=== PATIENT | male | born 1975 | race Caucasian/White ===

== ENCOUNTER 2017-03-30 01:39 | Emergency (ER) | payer BC, OTHER ==
[~2017-03-30] VITALS: Ht 175.3 cm; Wt 118.0 kg
[~2017-03-30 01:39] MED LIST: AMLO5TAB96 PO; ATEN1TAB73 PO; LEVO150T46 PO; LISI-591 PO; LORT5TAB PO; META800 PO; SERT100 PO
[2017-03-30 01:40] VITALS: BP 154/112; PULSE 77; RESP 16; TEMP 98.6; O2SAT 97
[2017-03-30 02:34] LABS: BASOPHIL % 0.8 % (0.0-2.0); EOSINOPHIL # 0.1 TH/MM3 (0-0.4); EOSINOPHIL % 1.2 % (0.0-4.0); HEMATOCRIT 44.1 % (39.0-51.0); HEMO FLAGS DIFF FINAL; LYMPH % 26.8 % (9.0-44.0); LYMPHOCYTE # 1.6 TH/MM3 (1.0-4.8); MEAN CELL VOLUME 88.6 FL (80.0-100.0); MEAN CORPUSCULAR HEMOGLOBIN 31.1 PG (27.0-34.0); MEAN CORPUSCULAR HGB CONC 35.1 % (32.0-36.0); MONO % 21.2 % (0.0-8.0); PLATELET COUNT 187 TH/MM3 (150-450); RED BLOOD COUNT 4.98 MIL/MM3 (4.50-5.90); RED CELL DISTRIBUTION WIDTH 13.8 % (11.6-17.2); WHITE BLOOD COUNT 5.9 TH/MM3 (4.0-11.0)
--- NOTE | 2017-03-30 03:02 | RADRPT ---
EXAM DATE/TIME: 03/30/2017 02:18 [place] COMPARISON: No previous studies available for comparison. INDICATIONS : Fever. MEDICAL HISTORY : Hypertension. Carcinoma, testicular. SURGICAL HISTORY : Left kidney removed. Infusaport. ENCOUNTER: Initial ACUITY: 3 days PAIN SCORE: 8/10 LOCATION: Bilateral chest FINDINGS: A single view of the chest demonstrates the lungs to be symmetrically aerated without evidence of mas s, infiltrate or effusion. The cardiomediastinal contours are unremarkable. Osseous structures are intact. [id number] catheter tip projects over the distal superior vena cava. CONCLUSION: The lungs are clear. Long Castañeda MD on March 30, 2017 at 3:00 Board Certified Radiologist. This report was verified electronically.
[2017-03-30 03:05] LABS: ALKALINE PHOSPHATASE 93 U/L (45-117); TOTAL BILIRUBIN ADULT 0.3 MG/DL (0.2-1.0)
[2017-03-30 03:09] LABS: ALT (GPT) 27 U/L (12-78); ANION GAP 8 MEQ/L (5-15); AST (GOT) 26 U/L (15-37); BICARBONATE 25.9 MEQ/L (21.0-32.0); BLOOD UREA NITROGEN 17 MG/DL (7-18); CHLORIDE 104 MEQ/L (98-107); GLOMERULAR FILTRATION RATE 44 ML/MIN (>89); POTASSIUM 4.3 MEQ/L (3.5-5.1); SODIUM (NA) 138 MEQ/L (136-145)
[2017-03-30] MEDS ORDERED: guaiFENesin/CODEINE SYRUP 200 MG/20 MG/10 ML CUP PO ONE (04:15)
[2017-03-30] MEDS ORDERED: DEXAMETHASONE SOD PHOS 4 MG/ML VIAL IV PUSH ONE (04:15)
--- NOTE | 2017-03-30 04:17 | PD ---
HPI Chief Complaint: Cold / Flu Symptoms Time Seen by Provider: 02:24 Travel History International Travel<30 days: No Contact w/Intl Traveler<30days: No Traveled to known affect area: No History of Present Illness HPI Patient has a sore throat and congested feeling for over 2 weeks. He seen his doctor who put him on Levaquin 10 day course. Then he took a Z-Ralf. 2 days later started a second course of Z-Ralf. He has 2 more days left of the Z-Ralf. 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 He has no complaints of dysuria or any other symptoms. He only feels congested throat inflamed and he is Marti completed 2 courses of antibiotics in the middle of the third. Chest x-rays done here labs are sent flu sent he has congested tightness in his throat swelling lymph nodes localized to the neck and the posterior pharynx no radiation no cough no fever. He took hydrocodone / Tylenol 2 pills to feel better. with moderate relief. He has seen his own private doctor for the same illness PFSH Past Medical History Anxiety: Yes Depression: Yes Cancer: Yes Diminished Hearing: No Hypertension: Yes Respiratory: Yes (SLEEP APNEA) Thyroid Disease: Yes Tetanus Vaccination: < 5 Years Influenza Vaccination: No Past Surgical History Abdominal Surgery: Yes (L nephrectomy ) Genitourinary Surgery: Yes (L orchidectomy ) Other Surgery: Yes (Retroperitoneal lymph node disection) Family History Family Myocardial Infarction: No Social History Alcohol Use: Yes (OCCASIONAL) Tobacco Use: No Substance Use: No Allergies-Medications (Allergen,Severity, Reaction): Coded Allergies: No Known Allergies (Verified Adverse Reaction, Unknown, 03/30/17) Reported Meds & Prescriptions Reported Meds & Active Scripts Active Magic Mouthwash Adult Liq (Multi-Ingredient Mouthwash/Gargle) 120 Ml Susp 10 Ml SWISH-SWAL ACHS Each 5mL contains: Nystatin 200,000units, Diphenhydramine 4.25mg, Viscous Lidocaine 10mg, Urbano syrup 0.8 mL Guaifenesin AC Liq (Guaifenesin-Codeine Liq) 100-10 Mg/5 Ml Syrp 10 Ml PO Q6H PRN Skelaxin (Metaxalone) 800 Mg Tab 800 Mg PO TIDPRN FOR MUSCLE RELAXATION Lortab 5/500 (Acetaminophen/Hydrocodone Bitart) 5 Mg/500 Mg Tab 1 Tab PO Q6HPRN FOR PAIN Reported Norvasc (Amlodipine Besylate) 5 Mg Tab 5 Mg PO BID Levoxyl (Levothyroxine Sodium) 150 Mcg Tab 175 Mcg PO DAILY Zoloft (Sertraline HCl) 100 Mg Tab 100 Mg PO DAILY Zestril 20 mg (Lisinopril) 20 Mg Tab 20 Mg PO BID Tenormin (Atenolol) 25 Mg Tab 25 Mg PO HS Review of Systems Except as stated in HPI: all other systems reviewed are Neg HENT: Positive: Sore Throat, Rhinorrhea, Congestion, Earache Physical Exam Narrative GENERAL: appears uncomfortable congested SKIN: Warm and dry. HEAD: Atraumatic. Normocephalic. EYES: Pupils equal and round. No scleral icterus. No injection or drainage. ENT: No nasal bleeding or discharge. Mucous membranes pink and moist.swollen tonsils bilaterally and submandibular lymphadenitis bilat NECK: Trachea midline. No JVD. lymphadenopathy anterior neck bilat CARDIOVASCULAR: Regular rate and rhythm. RESPIRATORY: No accessory muscle use. Clear to auscultation. Breath sounds equal bilaterally. GASTROINTESTINAL: Abdomen soft, non-tender, nondistended. Hepatic and splenic margins not palpable. MUSCULOSKELETAL: Extremities without clubbing, cyanosis, or edema. No obvious deformities. NEUROLOGICAL: Awake and alert. No obvious cranial nerve deficits. Motor grossly within normal limits. Five out of 5 muscle strength in the arms and legs. Normal speech. PSYCHIATRIC: Appropriate mood and affect; insight and judgment normal. Data Data Last Documented VS Vital Signs Date Time Temp Pulse Resp B/P (MAP) Pulse Ox O2 Delivery O2 Flow Rate FiO2 03/30/17 04:52 03/30/17 01:40 98.6 77 16 97 Room Air Orders Orders Sepsis Workup Initiated (03/30/17 ) Complete Blood Count With Diff (03/30/17 02:16) Comprehensive Metabolic Panel (03/30/17 02:16) Chest, Single Ap (03/30/17 02:16) Iv Access Insert/Monitor (03/30/17 02:16) Oxygen Administration (03/30/17 02:16) Oximetry (03/30/17 02:16) Influenzae A/B Antigen (03/30/17 03:29) Dexamethasone Inj (Decadron Inj) (03/30/17 04:15) Guaifen-Cod 200-20 Mg/10ml Liq (Robituss (03/30/17 04:15) Diphenhydramine Liq (Benadryl Liq) (03/30/17 04:45) Al-Mag Hy-Si 40-40-4 Mg/Ml Liq (Mag-Al P (03/30/17 04:45) Lidocaine 2% Viscous (Xylocaine 2% Visco (03/30/17 04:45) Ed Discharge Order (03/30/17 04:50) Labs Laboratory Tests Test 03/30/17 02:15 White Blood Count 5.9 TH/MM3 Red Blood Count 4.98 MIL/MM3 Hemoglobin 15.5 GM/DL Hematocrit 44.1 % Mean Corpuscular Volume 88.6 FL Mean Corpuscular Hemoglobin 31.1 PG Mean Corpuscular Hemoglobin Concent 35.1 % Red Cell Distribution Width 13.8 % Platelet Count 187 TH/MM3 Mean Platelet Volume 8.5 FL Neutrophils (%) (Auto) 50.0 % Lymphocytes (%) (Auto) 26.8 % Monocytes (%) (Auto) 21.2 % Eosinophils (%) (Auto) 1.2 % Basophils (%) (Auto) 0.8 % Neutrophils # (Auto) 3.0 TH/MM3 Lymphocytes # (Auto) 1.6 TH/MM3 Monocytes # (Auto) 1.3 TH/MM3 Eosinophils # (Auto) 0.1 TH/MM3 Basophils # (Auto) 0.0 TH/MM3 CBC Comment DIFF FINAL Differential Comment Blood Urea Nitrogen 17 MG/DL Creatinine 1.70 MG/DL Random Glucose 95 MG/DL Total Protein 8.0 GM/DL Albumin 4.1 GM/DL Calcium Level 8.7 MG/DL Alkaline Phosphatase 93 U/L Aspartate Amino Transf (AST/SGOT) 26 U/L Alanine Aminotransferase (ALT/SGPT) 27 U/L Total Bilirubin 0.3 MG/DL Sodium Level 138 MEQ/L Potassium Level 4.3 MEQ/L Chloride Level 104 MEQ/L Carbon Dioxide Level 25.9 MEQ/L Anion Gap 8 MEQ/L Estimat Glomerular Filtration Rate 44 ML/MIN MDM Medical Decision Making Medical Screen Exam Complete: Yes Emergency Medical Condition: Yes Differential Diagnosis virus vs tonsillitis bacterial vs allergic reaction local rhinitis and adenitis Narrative Course pt has been on 3 courses of antibiotics and no improvement I decide to symptomatically treat with cough syrup and antihistamine/ lidocaine gargle and follow up outpt Diagnosis Primary Impression: Pharyngitis Qualified Codes: J02.8 - Acute pharyngitis due to other specified organisms Additional Impression: Sore throat Patient Instructions: General Instructions, Pharyngitis (ED) Scripts Hfvrnzdb-Wpgpjbdebwywyzi-Ypogtbvjq Liq (Magic Mouthwash Adult Liq) 120 Ml Susp 10 ML SWISH-SWAL ACHS for Mouth sores, #120 ML 0 Refills Each 5mL contains: Nystatin 200,000units, Diphenhydramine 4.25mg, Viscous Lidocaine 10mg, Urbano syrup 0.8 mL Prov: David Duke MD 03/30/17 Guaifenesin-Codeine Liq (Guaifenesin AC Liq) 100-10 Mg/5 Ml Syrp 10 ML PO Q6H Y for COUGH, #1 BOTTLE 0 Refills Prov: David Duke MD 03/30/17 Disposition: 01 DISCHARGE HOME Condition: Good David Duke MD Mar 30, 2017 04:17
[2017-03-30] MEDS ORDERED: GUAISYP4 PO (04:19)
[2017-03-30] MEDS ORDERED: MAGICADU2 SWISH-SWAL (04:33)
[2017-03-30] MEDS ORDERED: LIDOCAINE VISCOUS 2% SOLN 15 ML UDC SWISH-SWAL ONE (04:45)
[2017-03-30] MEDS ORDERED: diphenhydrAMINE HCL ELIXIR 12.5 MG/5 ML CUP PO ONE (04:45)
[2017-03-30] MEDS ORDERED: ALUMINUM/MAGNESIUM/SIMETH 30 ML CUP PO ONE (04:45)
== END 2017-03-30 04:51 | disposition home or self-care (01) ==
LOC: NEPC 01:39
DX: J02.8 Acute pharyngitis due to other specified organisms (principal); F32.9 Major depressive disorder, single episode, unspecified; I10 Essential (primary) hypertension
CPT/HCPCS: 71010; 80053; 85025; 87804; 96374; 99284; J1100